=== PATIENT | female | born 2005 | race African-American/Black ===

== ENCOUNTER 2023-04-21 09:21 | Emergency (ER) | payer OTHER ==
[~2023-04-21] VITALS: Ht 180.3 cm; Wt 60.9 kg
[2023-04-21 09:24] VITALS: BP 119/81; PULSE 100; RESP 16; O2SAT 100
== END 2023-04-21 11:36 | disposition left against medical advice (07) ==
LOC: ER 09:21 → EDBD 09:21 → ER 11:36
DX: F41.9 Anxiety disorder, unspecified (principal); R56.9 Unspecified convulsions; Z59.00 Homelessness unspecified
CPT/HCPCS: 82962